=== PATIENT | male | born 1985 | race African-American/Black ===

== ENCOUNTER 2019-03-19 18:11 | Emergency (ER) | payer OTHER ==
[2019-03-19 18:32] VITALS: TEMP 100; BMI 36.5
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
[2019-03-19 20:42] LABS: BASO % 0.6 % (0-2.0); EOS % 0.6 % (0-4.5); HEMATOCRIT 46.2 % (35.4-49); HEMOGLOBIN 14.8 GM/dL (11.7-16.9); LYMPH % 34.4 % (8-40); MCH 30.9 pg (25.7-33.7); MEAN CELL VOLUME 96.6 fl (80-96); MEAN PLT VOLUME 8.5 fl (7.5-11.1); MONO % 4.1 % (3.8-10.2); NEUT % 60.3 % (42.8-82.8); PLATELET COUNT 206 K/MM3 (134-434); RBC 4.78 M/mm3 (4.00-5.60); RDW 13.7 % (11.9-15.9); WHITE BLOOD COUNT 6.3 K/mm3 (4.0-10.0)
[2019-03-19 21:08] LABS: ALBUMIN 3.8 g/dl (3.4-5.0); BILIRUBIN,TOTAL 0.3 mg/dL (0.2-1); BLOOD UREA NITROGEN 10.4 mg/dL (7-18); CALCIUM 9.5 mg/dL (8.5-10.1); CREATININE 1.3 mg/dL (0.55-1.3); POTASSIUM 3.9 mmol/L (3.5-5.1); TOT PROT 7.4 g/dl (6.4-8.2)
[2019-03-19 21:28] VITALS: BP 155/93; PULSE 97
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
== END 2019-03-19 22:20 | disposition home or self-care (01) ==
LOC: JER 18:11
DX: F10.120 Alcohol abuse with intoxication, uncomplicated (principal); F19.10 Other psychoactive substance abuse, uncomplicated; F17.210 Nicotine dependence, cigarettes, uncomplicated; F32.9 Major depressive disorder, single episode, unspecified
CPT/HCPCS: 36415; 80053; 80307; 85025; 99282-25

== ENCOUNTER 2021-12-07 11:29 | Emergency (ER) | payer OTHER ==
[2021-12-07 11:41] VITALS: BP 141/87; PULSE 97; TEMP 97.9; BMI 42.5
== END 2021-12-07 14:57 | disposition home or self-care (01) ==
LOC: JERFT 11:29
PROC: 2W3RX1Z Immobilization of Left Lower Leg using Splint (ICD-10-PCS; principal; 2021-12-07)
DX: S82.832A Other fracture of upper and lower end of left fibula, initial encounter for closed fracture (principal); Y99.9 Unspecified external cause status
CPT/HCPCS: 73590-TC-LT-FY; 99282-25

== ENCOUNTER 2021-12-17 22:54 | Emergency (ER) | payer OTHER ==
[2021-12-17 23:21] VITALS: BP 147/97; PULSE 97; TEMP 98.9; BMI 38.5
[2021-12-18] MEDS ORDERED: IBUPROFEN 400 MG TABLET (FP) PO ONE ×2 (00:43→01:09)
[2021-12-18] MEDS ORDERED: CEFAZOLIN 1 GM in DEXTROSE 5%-WATER - 50 ML IVPB ONE (01:21)
[2021-12-18] MEDS ORDERED: ceFAZolin SODIUM 1 GM VIAL ONE (01:35)
[2021-12-18 02:03] LABS: BASO % 0.3 % (0-2.0); HEMATOCRIT 42.8 % (35.4-49); HEMOGLOBIN 13.7 GM/dL (11.7-16.9); LYMPH % 23.3 % (8-40); MCH 29.8 pg (25.7-33.7); MCHC 31.9 g/dl (32.0-35.9); MEAN CELL VOLUME 93.5 fl (80-96); MEAN PLT VOLUME 8.8 fl (7.5-11.1); MONO % 8.3 % (3.8-10.2); NEUT % 67.1 % (42.8-82.8); PLATELET COUNT 295 10^3/uL (134-434); RBC 4.58 M/mm3 (4.00-5.60); RDW 15.8 % (11.9-15.9); WHITE BLOOD COUNT 8.5 K/mm3 (4.0-10.0)
[2021-12-18 02:22] LABS: CALCIUM 9.6 mg/dL (8.5-10.1)
[2021-12-18 02:23] LABS: ALBUMIN 3.7 g/dl (3.4-5.0); BLOOD UREA NITROGEN 11.4 mg/dL (7-18)
[2021-12-18 02:26] LABS: CREATININE 1.1 mg/dL (0.55-1.3)
[2021-12-18 02:27] LABS: BILIRUBIN,TOTAL 0.4 mg/dL (0.2-1); TOT PROT 7.6 g/dl (6.4-8.2)
[2021-12-18 04:18] LABS: ERYTHROCYTE SEDIMENTATION RATE 23 mm/hr (0-10)
== END 2021-12-18 03:53 | disposition home or self-care (01) ==
LOC: JER 22:54
DX: R22.42 Localized swelling, mass and lump, left lower limb (principal)
CPT/HCPCS: 36415; 73590-TC-LT-FY; 73610-TC-LT-FY; 73630-TC-LT; 80053; 83605; 83880; 85025; 85651; 86140; 93005; 93010; 93971-TC; 99285-25

== ENCOUNTER 2022-08-24 21:15 | Emergency (ER) | payer OTHER ==
[2022-08-24 21:28] VITALS: BP 140/89; PULSE 94; RESP 18; TEMP 99.6; BMI 45.0
[2022-08-24] MEDS ORDERED: ACETAMINOPHEN 325 MG TABLET (FP) PO ONE (21:41)
[2022-08-24] MEDS ORDERED: ACETAMINOPHEN 325 MG TABLET (FP) ONE (21:56)
== END 2022-08-25 01:27 | disposition home or self-care (01) ==
LOC: JER 21:15
DX: M25.472 Effusion, left ankle (principal); M79.89 Other specified soft tissue disorders
CPT/HCPCS: 73590-TC-LT-FY; 73610-TC-LT-FY; 73630-TC-LT; 93005; 93010; 93971-TC; 99284-25

== ENCOUNTER → 2022-09-08 | Emergency (ER) | payer OTHER ==
[2022-09-08 20:28] VITALS: BP 144/88; PULSE 101; RESP 18; TEMP 98.4; BMI 34.5
== END | disposition left against medical advice (07) ==
LOC: JER 20:20
DX: R22.41 Localized swelling, mass and lump, right lower limb (principal)
CPT/HCPCS: 99281-25

== ENCOUNTER 2023-04-05 14:26 | Emergency (ER) | payer OTHER ==
[2023-04-05 14:41] VITALS: BP 142/92; PULSE 85; RESP 20; TEMP 98.3; BMI 51.0
[2023-04-05 16:31] LABS: BASO % 0.3 % (0-2.0); EOS % 0.8 % (0-4.5); HEMATOCRIT 45.7 % (35.4-49); HEMOGLOBIN 14.2 GM/dL (11.7-16.9); LYMPH % 33.8 % (8-40); MCHC 31.1 g/dl (32.0-35.9); MEAN CELL VOLUME 96.5 fl (80-96); MEAN PLT VOLUME 9.9 fl (7.5-11.1); MONO % 7.1 % (3.8-10.2); PLATELET COUNT 212 10^3/uL (134-434); RBC 4.74 M/mm3 (4.00-5.60); RDW 14.7 % (11.9-15.9); WHITE BLOOD COUNT 5.6 K/mm3 (4.0-10.0)
[2023-04-05 16:53] LABS: POTASSIUM 4.4 mmol/L (3.5-5.1)
[2023-04-05 16:57] LABS: BLOOD UREA NITROGEN 10.5 mg/dL (7-18); CALCIUM 9.5 mg/dL (8.5-10.1)
[2023-04-05 16:58] LABS: ALBUMIN 3.8 g/dl (3.4-5.0)
[2023-04-05 17:01] LABS: TOT PROT 7.5 g/dl (6.4-8.2)
[2023-04-05 17:02] LABS: BILIRUBIN,TOTAL 0.4 mg/dL (0.2-1)
[2023-04-05 17:05] LABS: N-TERMINAL BNP 5.2 pg/ml (5-125)
== END 2023-04-05 18:21 | disposition home or self-care (01) ==
LOC: JER 14:26
DX: R60.0 Localized edema (principal); R06.02 Shortness of breath; L90.5 Scar conditions and fibrosis of skin; Z20.822 Contact with and (suspected) exposure to COVID-19; E66.9 Obesity, unspecified; Z68.43 Body mass index [BMI] 50.0-59.9, adult
CPT/HCPCS: 0241U-QW; 36415; 71045-TC-FY; 73590-TC-LT-FY; 80053; 83880; 84484; 85025; 93005; 93010; 93970-TC; 99285-25

== ENCOUNTER 2023-06-07 21:50 | Observation (INO) | payer OTHER ==
[2023-06-07 22:03] VITALS: BMI 50.8
[2023-06-07 23:33] LABS: BASO % 0.4 % (0-2.0); EOS % 1.1 % (0-4.5); HEMATOCRIT 43.7 % (35.4-49); HEMOGLOBIN 14.1 GM/dL (11.7-16.9); LYMPH % 24.6 % (8-40); MCH 30.2 pg (25.7-33.7); MCHC 32.3 g/dl (32.0-35.9); MEAN CELL VOLUME 93.3 fl (80-96); MEAN PLT VOLUME 8.9 fl (7.5-11.1); MONO % 6.6 % (3.8-10.2); NEUT % 67.3 % (42.8-82.8); PLATELET COUNT 233 10^3/uL (134-434); RBC 4.68 M/mm3 (4.00-5.60); WHITE BLOOD COUNT 6.9 K/mm3 (4.0-10.0)
[2023-06-08 00:01] LABS: CHLORIDE 114 mmol/L (98-107); POTASSIUM 4.4 mmol/L (3.5-5.1); SODIUM 147 mmol/L (136-145)
[2023-06-08 00:04] LABS: ALBUMIN 3.6 g/dl (3.4-5.0); ANION GAP 5 MMOL/L (8-16); CALCIUM 8.9 mg/dL (8.5-10.1); CO2 28 mmol/L (21-32); GLUCOSE,RANDOM 128 mg/dL (74-106)
[2023-06-08 00:07] LABS: CREATININE 1.7 mg/dL (0.55-1.3); SGOT/AST 25 U/L (15-37); SGPT/ALT 39 U/L (13-61)
[2023-06-08 00:08] LABS: BILIRUBIN,TOTAL 0.3 mg/dL (0.2-1); TOT PROT 7.3 g/dl (6.4-8.2)
[2023-06-08 00:09] LABS: ALK PHOS 107 U/L (45-117)
[2023-06-08 00:11] LABS: N-TERMINAL BNP < 5.0 pg/ml (5-125)
[2023-06-08] MEDS ORDERED: SODIUM CHLORIDE 0.9% 500 ML INFUS.BAG IV ONE (01:37)
[2023-06-08 06:42] LABS: BASO % 0.4 % (0-2.0); HEMATOCRIT 43.7 % (35.4-49); HEMOGLOBIN 13.8 GM/dL (11.7-16.9); LYMPH % 26.6 % (8-40); MCH 30.3 pg (25.7-33.7); MCHC 31.5 g/dl (32.0-35.9); MEAN CELL VOLUME 96.2 fl (80-96); MEAN PLT VOLUME 9.1 fl (7.5-11.1); MONO % 8.8 % (3.8-10.2); NEUT % 63.2 % (42.8-82.8); PLATELET COUNT 224 10^3/uL (134-434); RBC 4.55 M/mm3 (4.00-5.60); RDW 15.1 % (11.9-15.9)
[2023-06-08 07:00] LABS: POTASSIUM 4.6 mmol/L (3.5-5.1)
[2023-06-08 07:03] LABS: BLOOD UREA NITROGEN 18.5 mg/dL (7-18); CALCIUM 8.7 mg/dL (8.5-10.1)
[2023-06-08] MEDS ORDERED: NICOTINE POLACRILEX 2 MG GUM BUC PRN (07:07)
[2023-06-08 07:08] LABS: CREATININE 1.4 mg/dL (0.55-1.3)
[2023-06-08] MEDS ORDERED: ACETAMINOPHEN 500 MG TABLET (FP) PO PRN (07:08)
[2023-06-08] MEDS ORDERED: ARIPiprazole 15 MG TABLET PO SCH (10:00)
[2023-06-08] MEDS ORDERED: NIFEdipine E.R. 30 MG TABLET PO SCH (10:00)
[2023-06-08] MEDS ORDERED: LITHIUM CARBONATE 300 MG CAPSULE PO SCH (10:00)
[2023-06-08] MEDS ORDERED: CHOLECALCIFEROL (VIT D3) 1,000 UNIT (25 MCG) TABLET PO SCH (10:00)
[2023-06-08 10:19] VITALS: TEMP 98.4
[2023-06-08 10:35] VITALS: BP 139/80; PULSE 78; RESP 20
[2023-06-08] MEDS ORDERED: MIRTAZAPINE 15 MG TABLET (FP) PO SCH (22:00)
[2023-06-08] MEDS ORDERED: ATORVASTATIN CA 20 MG TABLET (FP) PO SCH (22:00)
== END 2023-06-08 13:17 | disposition home or self-care (01) ==
LOC: JERFT 21:50 → JERBED 06-08 01:36
PROVIDERS: ADMIT Internal Medicine; ATTEND Internal Medicine
PROC: 3E0337Z Introduction of Electrolytic and Water Balance Substance into Peripheral Vein, Percutaneous Approach (ICD-10-PCS; principal; 2023-06-08)
DX: N17.9 Acute kidney failure, unspecified (principal); R60.0 Localized edema; I10 Essential (primary) hypertension; F10.20 Alcohol dependence, uncomplicated; F14.20 Cocaine dependence, uncomplicated; F31.9 Bipolar disorder, unspecified; F20.9 Schizophrenia, unspecified; E66.01 Morbid (severe) obesity due to excess calories; Z68.43 Body mass index [BMI] 50.0-59.9, adult
CPT/HCPCS: 36415; 71045-TC-FY; 80048; 80053; 80178; 83880; 85025; 93005; 93010; 93970-TC; 99285-25; G0378

== ENCOUNTER 2023-12-01 12:43 | Emergency (ER) | payer OTHER ==
[2023-12-01 13:09] VITALS: TEMP 98; BMI 48.6
[2023-12-01] MEDS ORDERED: ACETAMINOPHEN 500 MG TABLET (FP) ONE (13:29)
[2023-12-01] MEDS: ACETAMINOPHEN 500 MG TABLET (FP) PO ONE (13:31)
[2023-12-01 15:19] VITALS: BP 131/84; PULSE 84; RESP 16
== END 2023-12-01 15:47 | disposition home or self-care (01) ==
LOC: JER 12:43
DX: M54.41 Lumbago with sciatica, right side (principal); M25.551 Pain in right hip
CPT/HCPCS: 72100-TC-FY; 73502-TC-RT-FY; 99284-25

== ENCOUNTER 2023-12-03 09:56 | Emergency (ER) | payer OTHER ==
[2023-12-03 10:06] VITALS: BP 176/85; PULSE 99; RESP 18; TEMP 98; BMI 48.6
[2023-12-03] MEDS ORDERED: LIDOCAINE 4% PATCH TP ONE (11:00)
[2023-12-03] MEDS ORDERED: ACETAMINOPHEN 500 MG TABLET (FP) ONE (11:00)
[2023-12-03] MEDS ORDERED: KETOROLAC TROMETHAMINE 30 MG/1 ML VIAL ONE (11:00)
[2023-12-03] MEDS: LIDOCAINE 5% TOPICAL PATCH TP ONE (11:07)
[2023-12-03] MEDS: ACETAMINOPHEN 500 MG TABLET (FP) PO ONE (11:07)
[2023-12-03] MEDS: KETOROLAC TROMETHAMINE 30 MG/1 ML VIAL IM ONE (11:07)
[2023-12-03] MEDS ORDERED: LIDOCAINE PATCH REMOVAL MC SCH (22:00)
== END 2023-12-03 11:54 | disposition home or self-care (01) ==
LOC: JERFT 09:56
PROC: 3E0233Z Introduction of Anti-inflammatory into Muscle, Percutaneous Approach (ICD-10-PCS; principal; 2023-12-03)
DX: M54.50 Low back pain, unspecified (principal); M25.551 Pain in right hip; I10 Essential (primary) hypertension
CPT/HCPCS: 96372; 99284-25

== ENCOUNTER 2023-12-06 06:22 | Emergency (ER) | payer OTHER ==
[2023-12-06 06:36] VITALS: RESP 20; BMI 51.1
[2023-12-06 08:12] LABS: VENOUS BASE EXCESS -0.8 mmol/L (-2-2); VENOUS O2 SATURATION 73.1 % (70-80); VENOUS PCO2 51.8 mmHg (38-52); VENOUS PH 7.322 (7.310-7.410)
[2023-12-06 08:17] LABS: BASO % 0.4 % (0-2.0); EOS % 0.2 % (0-4.5); HEMATOCRIT 47.2 % (35.4-49); HEMOGLOBIN 15.3 GM/dL (11.7-16.9); LYMPH % 14.6 % (8-40); MCH 30.7 pg (25.7-33.7); MCHC 32.5 g/dl (32.0-35.9); MEAN CELL VOLUME 94.4 fl (80-96); MEAN PLT VOLUME 8.7 fl (7.5-11.1); NEUT % 75.8 % (42.8-82.8); PLATELET COUNT 238 10^3/uL (134-434); RDW 15.5 % (11.9-15.9)
[2023-12-06 08:30] LABS: INR 1.03 (0.83-1.09); PROTHROMBIN TIME (PATIENT) 11.9 SEC (9.7-13.0)
[2023-12-06 08:33] LABS: ACTIVATED PTT 28.6 SECONDS (25.2-36.5)
[2023-12-06 08:38] LABS: POTASSIUM 5.3 mmol/L (3.5-5.1)
[2023-12-06 08:40] LABS: BLOOD UREA NITROGEN 16.6 mg/dL (7-18); CALCIUM 9.4 mg/dL (8.5-10.1)
[2023-12-06 08:42] LABS: ALBUMIN 3.6 g/dl (3.4-5.0)
[2023-12-06] MEDS ORDERED: ALBUTEROL SO4 2.5/IPRATROPIUM 0.5 INH SOL 3 ML VIAL.NEB. NEB ONE (08:43)
[2023-12-06 08:44] LABS: CREATININE 1.2 mg/dL (0.55-1.3)
[2023-12-06] MEDS ORDERED: ACETAMINOPHEN 500 MG TABLET (FP) ONE (08:44)
[2023-12-06 08:45] LABS: BILIRUBIN,TOTAL 0.7 mg/dL (0.2-1); TOT PROT 8.2 g/dl (6.4-8.2)
[2023-12-06] MEDS: ALBUTEROL SO4 2.5/IPRATROPIUM 0.5 INH SOL 3 ML VIAL.NEB. NEB ONE (08:50)
[2023-12-06] MEDS: ACETAMINOPHEN 500 MG TABLET (FP) PO ONE (08:50)
[2023-12-06 10:17] VITALS: BP 123/84; PULSE 90; TEMP 98.1
== END 2023-12-06 11:19 | disposition home or self-care (01) ==
LOC: JER 06:22
PROC: 3E0F7GC Introduction of Other Therapeutic Substance into Respiratory Tract, Via Natural or Artificial Opening (ICD-10-PCS; principal; 2023-12-06)
DX: M25.561 Pain in right knee (principal); M25.551 Pain in right hip; M25.571 Pain in right ankle and joints of right foot; R22.41 Localized swelling, mass and lump, right lower limb; Z20.822 Contact with and (suspected) exposure to COVID-19
CPT/HCPCS: 0241U-QW; 36415; 71045-TC-FY; 73560-TC-RT-FY; 80053; 82803; 84484; 85025; 85610; 85730; 93005; 93010; 99285-25

== ENCOUNTER 2024-02-18 13:47 | Observation (INO) | payer OTHER ==
[2024-02-18 15:21] LABS: BASO % 0.5 % (0-2.0); EOS % 0.7 % (0-4.5); HEMATOCRIT 44.2 % (35.4-49); HEMOGLOBIN 14.3 GM/dL (11.7-16.9); LYMPH % 24.7 % (8-40); MCH 30.9 pg (25.7-33.7); MCHC 32.5 g/dl (32.0-35.9); MEAN CELL VOLUME 95.3 fl (80-96); MEAN PLT VOLUME 8.6 fl (7.5-11.1); MONO % 7.7 % (3.8-10.2); NEUT % 66.4 % (42.8-82.8); PLATELET COUNT 239 10^3/uL (134-434); RBC 4.63 M/mm3 (4.00-5.60); RDW 15.3 % (11.9-15.9); WHITE BLOOD COUNT 7.3 K/mm3 (4.0-10.0)
[2024-02-18 15:22] LABS: VENOUS BASE EXCESS 2.2 mmol/L (-2-2); VENOUS O2 SATURATION 96.6 % (70-80); VENOUS PCO2 43.3 mmHg (38-52); VENOUS PH 7.415 (7.310-7.410)
[2024-02-18] MEDS: LOSARTAN 50MG/HCTZ 12.5MG 1 TAB PO ONE (15:26)
[2024-02-18] MEDS: ALBUTEROL SO4 2.5/IPRATROPIUM 0.5 INH SOL 3 ML VIAL.NEB. NEB SCH (15:26)
[2024-02-18] MEDS ORDERED: ALBUTEROL SO4 2.5/IPRATROPIUM 0.5 INH SOL 3 ML VIAL.NEB. NEB ONE (15:27)
[2024-02-18 15:34] LABS: ACTIVATED PTT 30.8 SECONDS (25.2-36.5); INR 0.96 (0.83-1.09)
[2024-02-18] MEDS ORDERED: ACETAMINOPHEN 325 MG TABLET (FP) ONE (15:34)
[2024-02-18 15:35] LABS: POTASSIUM 4.1 mmol/L (3.5-5.1)
[2024-02-18 15:37] LABS: ALBUMIN 3.7 g/dl (3.4-5.0); BLOOD UREA NITROGEN 9.9 mg/dL (7-18); CALCIUM 9.8 mg/dL (8.5-10.1); MAGNESIUM 1.9 mg/dL (1.8-2.4)
[2024-02-18 15:40] LABS: CREATININE 0.9 mg/dL (0.55-1.3)
[2024-02-18 15:42] LABS: BILIRUBIN,TOTAL 0.6 mg/dL (0.2-1); TOT PROT 7.6 g/dl (6.4-8.2)
[2024-02-18] MEDS: ACETAMINOPHEN 325 MG TABLET (FP) PO ONE (15:45)
[2024-02-18] MEDS: ACETAMINOPHEN 1000 MG/100 ML BAG IVPB ONE (15:45)
[2024-02-18] MEDS ORDERED: DEXAMETHASONE SOD PHOSPHATE 10 MG/1 ML VIAL ONE (15:46)
[2024-02-18] MEDS: methylPREDNISolone NA SUCC 125 MG/2 ML VIAL IVPUSH ONE (15:46)
[2024-02-18] MEDS: DEXAMETHASONE SOD PHOSPHATE 10 MG/1 ML VIAL IM ONE (15:48)
[2024-02-18] MEDS ORDERED: ACETAMINOPHEN 325 MG TABLET (FP) PO PRN ×2 (20:41→22:40)
[2024-02-18] MEDS ORDERED: DOCUSATE SODIUM 100 MG CAPSULE (FP) PO PRN (20:41)
[2024-02-18] MEDS ORDERED: ALBUTEROL SO4 2.5/IPRATROPIUM 0.5 INH SOL 3 ML VIAL.NEB. NEB PRN (20:49)
[2024-02-18 23:41] VITALS: BMI 51.7
[2024-02-19] MEDS: LITHIUM CARBONATE 300 MG CAPSULE PO SCH (00:04)
[2024-02-19] MEDS ORDERED: SODIUM CHLORIDE NASAL SPRAY 44 ML BOTTLE NS PRN (00:53)
[2024-02-19] MEDS: methylPREDNISolone NA SUCC 40 MG/1 ML VIAL IVPUSH SCH (03:14)
[2024-02-19 07:45] LABS: BASO % 0.1 % (0-2.0); HEMOGLOBIN 14.5 GM/dL (11.7-16.9); LYMPH % 8.3 % (8-40); MCH 31.2 pg (25.7-33.7); MCHC 32.2 g/dl (32.0-35.9); MEAN CELL VOLUME 97.1 fl (80-96); MEAN PLT VOLUME 9.1 fl (7.5-11.1); MONO % 2.5 % (3.8-10.2); NEUT % 89.1 % (42.8-82.8); PLATELET COUNT 231 10^3/uL (134-434); RBC 4.64 M/mm3 (4.00-5.60); RDW 14.9 % (11.9-15.9); WHITE BLOOD COUNT 8.5 K/mm3 (4.0-10.0)
[2024-02-19 07:59] LABS: POTASSIUM 4.8 mmol/L (3.5-5.1)
[2024-02-19 08:01] LABS: CALCIUM 9.6 mg/dL (8.5-10.1)
[2024-02-19 08:02] LABS: BLOOD UREA NITROGEN 13.9 mg/dL (7-18)
[2024-02-19 08:05] LABS: CREATININE 0.9 mg/dL (0.55-1.3)
[2024-02-19] MEDS: LOSARTAN 50MG/HCTZ 12.5MG 1 TAB PO SCH (09:11)
[2024-02-19] MEDS: ARIPiprazole 15 MG TABLET PO SCH (09:11)
[2024-02-19] MEDS: CHOLECALCIFEROL (VIT D3) 1,000 UNIT (25 MCG) TABLET PO SCH (09:11)
[2024-02-19 15:12] VITALS: BP 159/78; PULSE 96; RESP 22; TEMP 98.1
[2024-02-19] MEDS ORDERED: ATORVASTATIN CA 20 MG TABLET (FP) PO SCH ×2 (22:00→22:52)
[2024-02-19] MEDS ORDERED: MIRTAZAPINE 15 MG TABLET (FP) PO SCH ×2 (22:00→22:53)
[2024-02-19] MEDS ORDERED: OLANZapine 10 MG TABLET PO SCH (22:46)
[2024-02-20] MEDS ORDERED: methylPREDNISolone NA SUCC 40 MG/1 ML VIAL IVPUSH SCH (10:00)
== END 2024-02-19 16:12 | disposition home or self-care (01) ==
LOC: JER 13:47 → JERBED 18:59 → J4W 23:12
PROVIDERS: ADMIT Internal Medicine; ATTEND Internal Medicine
PROC: 3E0F7GC Introduction of Other Therapeutic Substance into Respiratory Tract, Via Natural or Artificial Opening (ICD-10-PCS; principal; 2024-02-18)
PROC: 3E023GC Introduction of Other Therapeutic Substance into Muscle, Percutaneous Approach (ICD-10-PCS; 2024-02-18)
PROC: 3E033GC Introduction of Other Therapeutic Substance into Peripheral Vein, Percutaneous Approach (ICD-10-PCS; 2024-02-18)
DX: J45.901 Unspecified asthma with (acute) exacerbation (principal); R09.02 Hypoxemia; F10.99 Alcohol use, unspecified with unspecified alcohol-induced disorder; F19.90 Other psychoactive substance use, unspecified, uncomplicated; F31.9 Bipolar disorder, unspecified; E66.01 Morbid (severe) obesity due to excess calories; Z68.43 Body mass index [BMI] 50.0-59.9, adult; I10 Essential (primary) hypertension; M21.962 Unspecified acquired deformity of left lower leg
CPT/HCPCS: 0241U-QW; 36415; 71045-TC-FY; 71275-TC; 80048; 80053; 82550; 82803; 83735; 83880; 84484; 85025; 85610; 85730; 93005; 93010; 93970-TC; 94640; 96372; 96374; 99285-25; G0378; J1100

== ENCOUNTER 2024-08-01 20:15 | Observation (INO) | payer OTHER ==
[2024-08-01 20:31] VITALS: BMI 58.0
[2024-08-01 21:27] LABS: BASO % 0.5 % (0-2.0); EOS % 0.8 % (0-4.5); HEMATOCRIT 42.6 % (35.4-49); HEMOGLOBIN 13.5 GM/dL (11.7-16.9); LYMPH % 20.5 % (8-40); MCH 29.5 pg (25.7-33.7); MCHC 31.8 g/dl (32.0-35.9); MEAN PLT VOLUME 8.7 fl (7.5-11.1); NEUT % 69.2 % (42.8-82.8); PLATELET COUNT 202 10^3/uL (134-434); RBC 4.58 M/mm3 (4.00-5.60); RDW 16.2 % (11.9-15.9); WHITE BLOOD COUNT 6.7 K/mm3 (4.0-10.0)
[2024-08-01 21:44] LABS: POTASSIUM 4.3 mmol/L (3.5-5.1)
[2024-08-01 21:46] LABS: ALBUMIN 3.2 g/dl (3.4-5.0); BLOOD UREA NITROGEN 15.4 mg/dL (7-18); CALCIUM 9.1 mg/dL (8.5-10.1)
[2024-08-01 21:50] LABS: CREATININE 1.1 mg/dL (0.55-1.3)
[2024-08-01 21:51] LABS: BILIRUBIN,TOTAL 0.3 mg/dL (0.2-1); TOT PROT 6.7 g/dl (6.4-8.2)
[2024-08-01 21:54] LABS: N-TERMINAL BNP 54.9 pg/ml (5-125)
[2024-08-01 22:40] LABS: HIV INTERPRETATION NEGATIVE (NEGATIVE)
[2024-08-01] MEDS ORDERED: ALBUTEROL SO4 HFA INHALER IH ONE (22:54)
[2024-08-01] MEDS: ALBUTEROL SO4 HFA INHALER IH ONE (22:57)
[2024-08-01] MEDS ORDERED: FUROSEMIDE 40 MG TABLET (FP) ONE (23:25)
[2024-08-01] MEDS: FUROSEMIDE 40 MG TABLET (FP) PO ONE (23:29)
[2024-08-02] MEDS: BUMETANIDE 1 MG TABLET PO SCH (04:03)
[2024-08-02 04:04] VITALS: RESP 20
[2024-08-02 07:30] LABS: POTASSIUM 4.6 mmol/L (3.5-5.1)
[2024-08-02 07:32] LABS: ALBUMIN 3.6 g/dl (3.4-5.0); MAGNESIUM 1.8 mg/dL (1.8-2.4)
[2024-08-02 07:33] LABS: CALCIUM 9.7 mg/dL (8.5-10.1)
[2024-08-02 07:34] LABS: BLOOD UREA NITROGEN 15.8 mg/dL (7-18)
[2024-08-02 07:35] LABS: CREATININE 1.1 mg/dL (0.55-1.3)
[2024-08-02 07:37] LABS: TOT PROT 7.7 g/dl (6.4-8.2)
[2024-08-02 07:40] LABS: BILIRUBIN,TOTAL 0.7 mg/dL (0.2-1)
[2024-08-02 07:45] LABS: BASO % 0.5 % (0-2.0); EOS % 0.7 % (0-4.5); HEMATOCRIT 46.4 % (35.4-49); HEMOGLOBIN 14.4 GM/dL (11.7-16.9); LYMPH % 17.5 % (8-40); MCH 29.3 pg (25.7-33.7); MEAN CELL VOLUME 94.5 fl (80-96); MEAN PLT VOLUME 9.6 fl (7.5-11.1); MONO % 8.8 % (3.8-10.2); NEUT % 72.5 % (42.8-82.8); PLATELET COUNT 221 10^3/uL (134-434); RBC 4.91 M/mm3 (4.00-5.60); RDW 16.1 % (11.9-15.9); WHITE BLOOD COUNT 6.6 K/mm3 (4.0-10.0)
[2024-08-02 09:35] VITALS: BP 153/82; PULSE 94; TEMP 98.2
[2024-08-02] MEDS ORDERED: HYDROCHLOROTHIAZIDE 12.5 MG CAPSULE (FP) PO SCH (10:00)
[2024-08-02] MEDS: ALBUTEROL SO4 2.5/IPRATROPIUM 0.5 INH SOL 3 ML VIAL.NEB. NEB SCH (10:09)
[2024-08-02 10:11] LABS: ARTERIAL BLD GAS O2 SATURATION 93.2 % (95-98); ARTERIAL BLOOD GAS BASE EXCESS 5.9 mmol/L (-2-2); ARTERIAL BLOOD GAS PO2 70.4 mmHg (80-100); ARTERIAL BLOOD GAS pH 7.364 (7.350-7.450)
[2024-08-02 10:14] LABS: ALLENS TEST POSITIVE
[2024-08-02] MEDS: FUROSEMIDE 40 MG/4 ML INJECTABLE VIAL IVPUSH SCH (10:24)
[2024-08-02] MEDS: LOSARTAN POTASSIUM 50 MG TABLET PO SCH (10:30)
[2024-08-02] MEDS: ENOXAPARIN NA (PORCINE) 40 MG/0.4 ML DISP.SYRIN SQ SCH (10:30)
[2024-08-02] MEDS: ARIPiprazole 15 MG TABLET PO SCH (10:30)
[2024-08-02] MEDS: LITHIUM CARBONATE 300 MG CAPSULE PO SCH (10:31)
[2024-08-02 11:49] LABS: METHADONE, UR NEGATIVE (NEGATIVE); OPIATES, URI NEGATIVE (NEGATIVE); URINE AMPHETAMINES NEGATIVE (NEGATIVE)
[2024-08-02 11:50] LABS: PHENCYCLIDINE,URINE NEGATIVE (NEGATIVE)
[2024-08-02 11:51] LABS: COCAINE, UR NEGATIVE (NEGATIVE); URINE BARBITURATES NEGATIVE (NEGATIVE); URINE BENZODIAZEPINES NEGATIVE (NEGATIVE)
[2024-08-02] MEDS ORDERED: ATORVASTATIN CA 20 MG TABLET (FP) PO SCH (22:00)
[2024-08-02] MEDS ORDERED: OLANZapine 5 MG TABLET PO SCH (22:00)
[2024-08-02] MEDS ORDERED: MIRTAZAPINE 15 MG TABLET (FP) PO SCH (22:00)
== END 2024-08-02 13:42 | disposition left against medical advice (07) ==
LOC: JER 20:15 → JERBED 23:13 → OBSVTOIN 08-02 03:55 → INTOOBSV 08-02 03:55 → J7W 08-02 04:20
PROVIDERS: ADMIT Internal Medicine; ATTEND Nurse Practitioner Family
PROC: 3E0F7GC Introduction of Other Therapeutic Substance into Respiratory Tract, Via Natural or Artificial Opening (ICD-10-PCS; principal; 2024-08-01)
PROC: 3E023GC Introduction of Other Therapeutic Substance into Muscle, Percutaneous Approach (ICD-10-PCS; 2024-08-01)
PROC: 3E033GC Introduction of Other Therapeutic Substance into Peripheral Vein, Percutaneous Approach (ICD-10-PCS; 2024-08-01)
DX: I89.0 Lymphedema, not elsewhere classified (principal); E78.5 Hyperlipidemia, unspecified; F19.90 Other psychoactive substance use, unspecified, uncomplicated; F31.9 Bipolar disorder, unspecified; F10.99 Alcohol use, unspecified with unspecified alcohol-induced disorder; E66.01 Morbid (severe) obesity due to excess calories; I10 Essential (primary) hypertension; J45.909 Unspecified asthma, uncomplicated; R60.0 Localized edema; M21.962 Unspecified acquired deformity of left lower leg; F17.200 Nicotine dependence, unspecified, uncomplicated
CPT/HCPCS: 36415; 36600; 71045-TC-FY; 80053; 80061; 80307; 82803; 83036; 83735; 83880; 84100; 84484; 85025; 86803; 87389; 93005; 93010; 93970-TC; 94640; 96372; 96374; 99285-25; G0378